=== PATIENT | female | born 1995 | race Caucasian/White ===

== ENCOUNTER 2022-05-10 15:00 | Emergency (ER) | payer MEDICAID, OTHER ==
[2022-05-10] MEDS ORDERED: Sodium Chloride 0.9% 10 ML Syringe FLUSH PRN (15:10)
[2022-05-10] MEDS ORDERED: Sodium Chloride 0.9% 2.5 ML Syringe FLUSH PRN (15:10)
[2022-05-10] MEDS ORDERED: Sodium Chloride 0.9% 1,000 ML IV ONE (15:10)
[2022-05-10] MEDS ORDERED: methylPREDNISolone Sodium Succinate 125 MG/2 ML SDV IVPUSH ONE (15:13)
[2022-05-10] MEDS ORDERED: Famotidine 20 MG/2 ML SDV IVPUSH ONE (15:13)
[2022-05-10 16:07] LABS: CORONAVIRUS COVID-19 NAA NEGATIVE (NEGATIVE); INFLUENZA A NAA NEGATIVE (NEGATIVE); INFLUENZA B NAA NEGATIVE (NEGATIVE); RESPIRATORY SYNCYTIAL VIR NAA NEGATIVE (NEGATIVE)
[2022-05-10 16:28] LABS: CARBON DIOXIDE,CO2 27.9 mmol/L (21.0-32.0); POTASSIUM,K 3.7 mmol/L (3.5-5.1)
== END 2022-05-10 19:11 | disposition home or self-care (01) ==
LOC: MW.ED 15:00
DX: T78.40XA Allergy, unspecified, initial encounter (principal); B34.9 Viral infection, unspecified; Z88.5 Allergy status to narcotic agent; Z88.8 Allergy status to other drugs, medicaments and biological substances; Z20.822 Contact with and (suspected) exposure to COVID-19
CPT/HCPCS: 0241U; 36415; 71045; 80053; 83605; 85025; 87040; 96361; 96374; 96375; 99284; J2930; J3490; J7030

== ENCOUNTER 2022-05-11 18:57 | Inpatient (IN) | payer MEDICAID ==
[2022-05-11] MEDS ORDERED: Lactated Ringers 1,000 ML IV ONE (19:07)
[2022-05-11] MEDS ORDERED: methylPREDNISolone Sodium Succinate 125 MG/2 ML SDV IVPUSH STA (19:08)
[2022-05-11] MEDS ORDERED: Ibuprofen Susp 100 MG/5 ML 10 ML UD Cup JTUBE STA (19:08)
[2022-05-11 19:58] LABS: BLOOD UREA NITROGEN,BUN 15 mg/dL (7.0-18.0); CARBON DIOXIDE,CO2 28.7 mmol/L (21.0-32.0); CHLORIDE,CL 103 mmol/L (98-107); GLUCOSE RANDOM 167 mg/dL (74-106); POTASSIUM,K 3.5 mmol/L (3.5-5.1); SODIUM,NA 139 mmol/L (136-145)
[2022-05-11 20:00] LABS: ESTIMATED GFR 139 mL/min (>60)
[2022-05-11 21:13] LABS: CORONAVIRUS COVID-19 NAA NEGATIVE (NEGATIVE); INFLUENZA A NAA POSITIVE (NEGATIVE); INFLUENZA B NAA NEGATIVE (NEGATIVE); RESPIRATORY SYNCYTIAL VIR NAA NEGATIVE (NEGATIVE)
[2022-05-11] MEDS ORDERED: Oseltamivir 6 MG/ML Susp 60 ML Bot JTUBE STA (21:42)
[2022-05-11] MEDS ORDERED: Ondansetron 4 MG/2 ML SDV IVPUSH PRN (21:59)
[2022-05-11] MEDS ORDERED: cefTRIAXone 1 GM in Sodium Chloride 0.9% 50 ML IV SCH (22:15)
[2022-05-11] MEDS: Pantoprazole 40 MG in Sodium Chloride 0.9% 10 ML IVPUSH SCH (22:17)
[2022-05-11] MEDS: Lactated Ringers 1,000 ML IV SCH (22:26)
[2022-05-11] MEDS ORDERED: LORazepam 2 MG/ML SDV IVPUSH PRN (23:20)
[2022-05-12] MEDS ORDERED: VIMPAT 10 MG/ML GTUBE SCH (00:45)
[2022-05-12] MEDS ORDERED: Baclofen 10 MG Tab GTUBE SCH (01:00)
[2022-05-12] MEDS: Enoxaparin 30 MG/0.3 ML Syringe SUBCUT SCH ×2 (01:38→21:23)
[2022-05-12] MEDS ORDERED: Patient's Own Medication 1 Each GTUBE SCH ×2 (03:30→09:00)
[2022-05-12] MEDS: VIMPAT 10MG/ML GTUBE SCH ×2 (04:18→17:16)
[2022-05-12] MEDS: Lactated Ringers 1,000 ML IV SCH ×2 (07:21→13:05)
[2022-05-12] MEDS: Oseltamivir 75 MG Cap JTUBE SCH ×2 (08:12→20:28)
[2022-05-12] MEDS: OXCARBAZEPINE 300 MG/5 ML PO SCH (08:13)
[2022-05-12] MEDS: BACLOFEN 10 MG GTUBE SCH ×2 (08:14→20:40)
[2022-05-12 08:38] LABS: BLOOD UREA NITROGEN,BUN 6 mg/dL (7.0-18.0); CARBON DIOXIDE,CO2 28.4 mmol/L (21.0-32.0); CHLORIDE,CL 107 mmol/L (98-107); GLUCOSE RANDOM 120 mg/dL (74-106); POTASSIUM,K 3.7 mmol/L (3.5-5.1); SODIUM,NA 142 mmol/L (136-145)
[2022-05-12] MEDS ORDERED: OXcarbazepine 300 MG Tab GTUBE SCH (09:00)
[2022-05-12] MEDS ORDERED: diphenhydrAMINE 50 MG/ML SDV IVPUSH PRN (11:21)
[2022-05-12] MEDS ORDERED: methylPREDNISolone Sodium Succinate 125 MG/2 ML SDV IVPUSH ONE (11:22)
[2022-05-12] MEDS ORDERED: Lactated Ringers 1,000 ML IV SCH (11:30)
[2022-05-12] MEDS: Acetaminophen 325 MG Tab PO PRN (12:03)
[2022-05-12] MEDS: ClonazePAM 1 MG Tab GTUBE SCH (12:06)
[2022-05-12] MEDS: Albuterol/Ipratropium 3.0-0.5 MG/3 ML Neb Soln NEB PRN ×2 (13:14→17:17)
[2022-05-12] MEDS ORDERED: Polyethylene Glycol 3350 Powder 17 GM Packet PEGTUBE PRN ×2 (13:23→13:30)
[2022-05-12] MEDS ORDERED: Magnesium Sulfate/Water 2 GM in Premix Bag 1 BAG IV ONE (13:26)
[2022-05-12] MEDS ORDERED: Lactated Ringers 1,000 ML IV ONE (13:36)
[2022-05-12] MEDS: Piperacillin/Tazobactam 3.375 GM in Sodium Chloride 0.9% 50 ML IV SCH ×2 (14:14→20:59)
[2022-05-12] MEDS: methylPREDNISolone Sodium Succinate 40 MG/1 ML SDV IVPUSH SCH ×2 (14:18→22:01)
[2022-05-12] MEDS: diphenhydrAMINE 50 MG/ML SDV IVPUSH SCH ×3 (14:19→22:01)
[2022-05-12] MEDS: Azithromycin 500 MG in Sodium Chloride 0.9% 250 ML IV SCH (15:10)
[2022-05-12] MEDS: Famotidine 20 MG Tab JTUBE SCH (20:28)
[2022-05-12] MEDS: Pantoprazole 40 MG in Sodium Chloride 0.9% 10 ML IVPUSH SCH (22:02)
[2022-05-12] MEDS ORDERED: diphenhydrAMINE 50 MG/ML SDV IVPUSH SCH (23:45)
[2022-05-13] MEDS: Lactated Ringers 1,000 ML IV SCH ×3 (00:29→23:05)
[2022-05-13] MEDS: Albuterol/Ipratropium 3.0-0.5 MG/3 ML Neb Soln NEB PRN ×2 (01:27→08:55)
[2022-05-13] MEDS: VIMPAT 10MG/ML GTUBE SCH ×2 (03:31→16:27)
[2022-05-13] MEDS: Piperacillin/Tazobactam 3.375 GM in Sodium Chloride 0.9% 50 ML IV SCH ×3 (03:46→20:53)
[2022-05-13] MEDS ORDERED: diphenhydrAMINE 50 MG/ML SDV IVPUSH SCH (04:00)
[2022-05-13] MEDS: methylPREDNISolone Sodium Succinate 40 MG/1 ML SDV IVPUSH SCH ×3 (04:57→21:23)
[2022-05-13 06:06] LABS: CARBON DIOXIDE,CO2 29.9 mmol/L (21.0-32.0); POTASSIUM,K 3.3 mmol/L (3.5-5.1)
[2022-05-13] MEDS: Acetaminophen 325 MG Tab PO PRN (06:21)
[2022-05-13] MEDS: Oseltamivir 75 MG Cap JTUBE SCH ×2 (08:55→20:37)
[2022-05-13] MEDS: Famotidine 20 MG Tab JTUBE SCH (08:55)
[2022-05-13] MEDS: BACLOFEN 10 MG GTUBE SCH ×2 (08:57→20:37)
[2022-05-13] MEDS: OXCARBAZEPINE 300 MG/5 ML PO SCH (08:58)
[2022-05-13] MEDS: ClonazePAM 1 MG Tab GTUBE SCH (09:26)
[2022-05-13] MEDS ORDERED: Lactated Ringers 1,000 ML IV ONE (10:28)
[2022-05-13] MEDS ORDERED: Potassium Chloride 10% 20 MEQ/15 ML Soln 30 ML UD Cup JTUBE ONE (10:30)
[2022-05-13] MEDS ORDERED: Potassium Chloride 10% 20 MEQ/15 ML Soln 30 ML UD Cup PO ONE (10:30)
[2022-05-13] MEDS ORDERED: Acetaminophen 325 MG/10.15 ML ML JTUBE PRN (10:40)
[2022-05-13] MEDS: Azithromycin 500 MG in Sodium Chloride 0.9% 250 ML IV SCH (13:07)
[2022-05-13 17:31] LABS: CARBON DIOXIDE,CO2 28.4 mmol/L (21.0-32.0); POTASSIUM,K 4.1 mmol/L (3.5-5.1)
[2022-05-13] MEDS: diphenhydrAMINE 50 MG/ML SDV IVPUSH PRN (18:59)
[2022-05-13] MEDS: Enoxaparin 30 MG/0.3 ML Syringe SUBCUT SCH (21:23)
[2022-05-13] MEDS: Pantoprazole 40 MG in Sodium Chloride 0.9% 10 ML IVPUSH SCH (22:00)
[2022-05-14] MEDS: Piperacillin/Tazobactam 3.375 GM in Sodium Chloride 0.9% 50 ML IV SCH ×4 (04:15→23:16)
[2022-05-14] MEDS: VIMPAT 10MG/ML GTUBE SCH ×2 (04:21→15:43)
[2022-05-14] MEDS: methylPREDNISolone Sodium Succinate 40 MG/1 ML SDV IVPUSH SCH ×2 (04:51→15:42)
[2022-05-14 05:57] LABS: CARBON DIOXIDE,CO2 28.7 mmol/L (21.0-32.0); POTASSIUM,K 3.7 mmol/L (3.5-5.1)
[2022-05-14] MEDS ORDERED: Acetaminophen 325 MG/10.15 ML ML JTUBE PRN (06:30)
[2022-05-14] MEDS: Famotidine 20 MG Tab JTUBE SCH (08:28)
[2022-05-14] MEDS: Oseltamivir 75 MG Cap JTUBE SCH ×2 (08:28→20:06)
[2022-05-14] MEDS: OXCARBAZEPINE 300 MG/5 ML PO SCH (08:29)
[2022-05-14] MEDS: BACLOFEN 10 MG GTUBE SCH ×2 (08:29→20:07)
[2022-05-14] MEDS: Lactated Ringers 1,000 ML IV SCH ×3 (09:06→22:16)
[2022-05-14] MEDS: Azithromycin 500 MG in Sodium Chloride 0.9% 250 ML IV SCH (14:11)
[2022-05-14] MEDS: diphenhydrAMINE 50 MG/ML SDV IVPUSH PRN (16:39)
[2022-05-14] MEDS: ClonazePAM 0.5 MG Tab PO SCH (21:07)
[2022-05-14] MEDS: Enoxaparin 30 MG/0.3 ML Syringe SUBCUT SCH (21:38)
[2022-05-14] MEDS: Pantoprazole 40 MG in Sodium Chloride 0.9% 10 ML IVPUSH SCH (21:39)
[2022-05-15] MEDS: VIMPAT 10MG/ML GTUBE SCH ×2 (03:17→16:20)
[2022-05-15] MEDS: methylPREDNISolone Sodium Succinate 40 MG/1 ML SDV IVPUSH SCH ×2 (03:28→16:19)
[2022-05-15] MEDS: Piperacillin/Tazobactam 3.375 GM in Sodium Chloride 0.9% 50 ML IV SCH (04:50)
[2022-05-15 06:31] LABS: CARBON DIOXIDE,CO2 30.5 mmol/L (21.0-32.0); POTASSIUM,K 3.5 mmol/L (3.5-5.1)
[2022-05-15] MEDS: OXCARBAZEPINE 300 MG/5 ML PO SCH (09:05)
[2022-05-15] MEDS: Famotidine 20 MG Tab JTUBE SCH (09:05)
[2022-05-15] MEDS: Oseltamivir 75 MG Cap JTUBE SCH ×2 (09:05→20:07)
[2022-05-15] MEDS: BACLOFEN 10 MG GTUBE SCH ×2 (09:06→20:07)
[2022-05-15] MEDS ORDERED: Glucagon,Human Recombinant 1 MG Vial IM PRN (09:07)
[2022-05-15] MEDS ORDERED: 50% Dextrose in Water 50 ML Syringe IVPUSH PRN (09:07)
[2022-05-15] MEDS ORDERED: Insulin Aspart 100 Units/ML 3 ML Pen SUBCUT SCH (09:15)
[2022-05-15] MEDS ORDERED: Dextrose 5% in Water 1,000 ML IV SCH (09:45)
[2022-05-15] MEDS: Ampicillin/Sulbactam Na 1.5 GM in Sodium Chloride 0.9% 50 ML IV SCH ×3 (10:12→21:16)
[2022-05-15] MEDS: Insulin Aspart 100 Units/ML 3 ML Pen SUBCUT SCH ×3 (12:03→23:41)
[2022-05-15] MEDS: Azithromycin 500 MG in Sodium Chloride 0.9% 250 ML IV SCH (12:34)
[2022-05-15 16:00] LABS: CARBON DIOXIDE,CO2 30.6 mmol/L (21.0-32.0); POTASSIUM,K 3.3 mmol/L (3.5-5.1)
[2022-05-15] MEDS: Dextrose 5% in Water 1,000 ML IV SCH (16:15)
[2022-05-15] MEDS: Lactated Ringers 1,000 ML IV SCH (19:32)
[2022-05-15] MEDS: Enoxaparin 30 MG/0.3 ML Syringe SUBCUT SCH (21:15)
[2022-05-15] MEDS: ClonazePAM 0.5 MG Tab PO SCH (21:15)
[2022-05-16 00:14] LABS: CARBON DIOXIDE,CO2 32.1 mmol/L (21.0-32.0); POTASSIUM,K 3.9 mmol/L (3.5-5.1)
[2022-05-16] MEDS: Dextrose 5% in Water 1,000 ML IV SCH ×4 (01:31→23:55)
[2022-05-16] MEDS: Ampicillin/Sulbactam Na 1.5 GM in Sodium Chloride 0.9% 50 ML IV SCH ×4 (03:05→21:03)
[2022-05-16] MEDS: Albuterol/Ipratropium 3.0-0.5 MG/3 ML Neb Soln NEB PRN (04:26)
[2022-05-16] MEDS: VIMPAT 10MG/ML GTUBE SCH ×2 (04:26→16:00)
[2022-05-16] MEDS: methylPREDNISolone Sodium Succinate 40 MG/1 ML SDV IVPUSH SCH (04:26)
[2022-05-16] MEDS: Insulin Aspart 100 Units/ML 3 ML Pen SUBCUT SCH ×4 (05:17→23:51)
[2022-05-16 05:55] LABS: CARBON DIOXIDE,CO2 33.9 mmol/L (21.0-32.0); POTASSIUM,K 3.2 mmol/L (3.5-5.1)
[2022-05-16] MEDS ORDERED: Phosphorus #1 250 MG Tab GTUBE ONE (07:30)
[2022-05-16] MEDS ORDERED: Potassium Chloride 10% 20 MEQ/15 ML Soln 30 ML UD Cup GTUBE ONE (07:30)
[2022-05-16] MEDS: Famotidine 20 MG Tab JTUBE SCH (08:27)
[2022-05-16] MEDS: Oseltamivir 75 MG Cap JTUBE SCH ×2 (08:27→20:47)
[2022-05-16] MEDS: OXCARBAZEPINE 300 MG/5 ML PO SCH (08:38)
[2022-05-16] MEDS: BACLOFEN 10 MG GTUBE SCH ×2 (08:43→20:43)
[2022-05-16] MEDS: diphenhydrAMINE 50 MG/ML SDV IVPUSH PRN (13:32)
[2022-05-16] MEDS: Azithromycin 500 MG in Sodium Chloride 0.9% 250 ML IV SCH (13:36)
[2022-05-16 15:49] LABS: POTASSIUM,K 3.9 mmol/L (3.5-5.1)
[2022-05-16] MEDS: ClonazePAM 0.5 MG Tab PO SCH (20:44)
[2022-05-16] MEDS: Enoxaparin 30 MG/0.3 ML Syringe SUBCUT SCH (21:53)
[2022-05-17] MEDS: Ampicillin/Sulbactam Na 1.5 GM in Sodium Chloride 0.9% 50 ML IV SCH ×5 (03:28→22:45)
[2022-05-17] MEDS: VIMPAT 10MG/ML GTUBE SCH ×2 (04:12→17:39)
[2022-05-17] MEDS: Dextrose 5% in Water 1,000 ML IV SCH ×3 (05:55→18:14)
[2022-05-17] MEDS: Insulin Aspart 100 Units/ML 3 ML Pen SUBCUT SCH ×3 (05:57→18:12)
[2022-05-17 06:13] LABS: CARBON DIOXIDE,CO2 33.6 mmol/L (21.0-32.0); POTASSIUM,K 3.3 mmol/L (3.5-5.1)
[2022-05-17] MEDS: Famotidine 20 MG Tab JTUBE SCH (08:28)
[2022-05-17] MEDS: BACLOFEN 10 MG GTUBE SCH ×2 (08:37→20:35)
[2022-05-17] MEDS ORDERED: methylPREDNISolone Sodium Succinate 40 MG/1 ML SDV IVPUSH SCH (09:00)
[2022-05-17] MEDS: OXCARBAZEPINE 300 MG/5 ML PO SCH (09:21)
[2022-05-17] MEDS ORDERED: Phosphorus #1 250 MG Tab GTUBE ONE (10:29)
[2022-05-17] MEDS ORDERED: Potassium Chloride 20 MEQ in Premix Bag 1 BAG IV SCH (10:30)
[2022-05-17] MEDS ORDERED: WATER IV ONE ×2 (11:00)
[2022-05-17] MEDS ORDERED: DEXTROSE IV ONE ×2 (11:00)
[2022-05-17] MEDS ORDERED: POTASSIUM PHOSPHATES IV ONE ×2 (11:00)
[2022-05-17 14:53] LABS: CARBON DIOXIDE,CO2 33.9 mmol/L (21.0-32.0); POTASSIUM,K 4.2 mmol/L (3.5-5.1)
[2022-05-17] MEDS: Azithromycin 500 MG in Sodium Chloride 0.9% 250 ML IV SCH (15:55)
[2022-05-17] MEDS: ClonazePAM 0.5 MG Tab PO SCH (20:35)
[2022-05-17] MEDS: Enoxaparin 30 MG/0.3 ML Syringe SUBCUT SCH (22:45)
[2022-05-18] MEDS: Sodium Chloride 0.9% Inhalation Soln 3 ML Neb INH SCH ×7 (00:20→22:50)
[2022-05-18] MEDS: Insulin Aspart 100 Units/ML 3 ML Pen SUBCUT SCH ×4 (03:36→18:11)
[2022-05-18] MEDS: Dextrose 5% in Water 1,000 ML IV SCH ×2 (03:52→16:45)
[2022-05-18] MEDS: VIMPAT 10MG/ML GTUBE SCH ×2 (03:57→17:30)
[2022-05-18] MEDS: Ampicillin/Sulbactam Na 1.5 GM in Sodium Chloride 0.9% 50 ML IV SCH ×3 (04:40→18:10)
[2022-05-18 07:07] LABS: CARBON DIOXIDE,CO2 33.5 mmol/L (21.0-32.0); POTASSIUM,K 3.4 mmol/L (3.5-5.1)
[2022-05-18] MEDS: Famotidine 20 MG Tab JTUBE SCH (09:51)
[2022-05-18] MEDS: BACLOFEN 10 MG GTUBE SCH ×2 (09:52→20:46)
[2022-05-18] MEDS: OXCARBAZEPINE 300 MG/5 ML PO SCH (09:53)
[2022-05-18] MEDS: Azithromycin 500 MG in Sodium Chloride 0.9% 250 ML IV SCH (14:44)
[2022-05-18] MEDS: ClonazePAM 0.5 MG Tab PO SCH (20:45)
[2022-05-18] MEDS: Enoxaparin 30 MG/0.3 ML Syringe SUBCUT SCH (22:46)
[2022-05-19] MEDS: Insulin Aspart 100 Units/ML 3 ML Pen SUBCUT SCH ×4 (00:06→17:31)
[2022-05-19] MEDS: Dextrose 5% in Water 1,000 ML IV SCH ×2 (01:54→10:55)
[2022-05-19] MEDS: Sodium Chloride 0.9% Inhalation Soln 3 ML Neb INH SCH ×6 (02:57→22:32)
[2022-05-19] MEDS: VIMPAT 10MG/ML GTUBE SCH ×2 (04:14→15:49)
[2022-05-19] MEDS: Ampicillin/Sulbactam Na 1.5 GM in Sodium Chloride 0.9% 50 ML IV SCH ×5 (05:30→17:11)
[2022-05-19 05:54] LABS: CARBON DIOXIDE,CO2 34.7 mmol/L (21.0-32.0); POTASSIUM,K 3.4 mmol/L (3.5-5.1)
[2022-05-19] MEDS: Famotidine 20 MG Tab JTUBE SCH (08:56)
[2022-05-19] MEDS: BACLOFEN 10 MG GTUBE SCH ×2 (08:56→20:23)
[2022-05-19] MEDS: OXCARBAZEPINE 300 MG/5 ML PO SCH (08:56)
[2022-05-19] MEDS ORDERED: Potassium Chloride 20 MEQ in Premix Bag 1 BAG IV ONE (10:15)
[2022-05-19] MEDS: Azithromycin 500 MG in Sodium Chloride 0.9% 250 ML IV SCH (13:36)
[2022-05-19] MEDS: ClonazePAM 0.5 MG Tab PO SCH (20:24)
[2022-05-19] MEDS: diphenhydrAMINE 50 MG/ML SDV IVPUSH PRN (21:05)
[2022-05-19] MEDS: Enoxaparin 30 MG/0.3 ML Syringe SUBCUT SCH (22:33)
[2022-05-20] MEDS: Dextrose 5% in Water 1,000 ML IV SCH ×3 (00:14→16:55)
[2022-05-20] MEDS: Ampicillin/Sulbactam Na 1.5 GM in Sodium Chloride 0.9% 50 ML IV SCH ×5 (00:15→23:56)
[2022-05-20] MEDS: Insulin Aspart 100 Units/ML 3 ML Pen SUBCUT SCH ×4 (00:47→17:28)
[2022-05-20] MEDS: Sodium Chloride 0.9% Inhalation Soln 3 ML Neb INH SCH ×6 (02:47→21:45)
[2022-05-20] MEDS: VIMPAT 10MG/ML GTUBE SCH ×2 (04:51→16:02)
[2022-05-20 06:02] LABS: POTASSIUM,K 3.8 mmol/L (3.5-5.1)
[2022-05-20] MEDS: Famotidine 20 MG Tab JTUBE SCH (08:16)
[2022-05-20] MEDS: OXCARBAZEPINE 300 MG/5 ML PO SCH (08:16)
[2022-05-20] MEDS: BACLOFEN 10 MG GTUBE SCH ×2 (08:16→21:45)
[2022-05-20] MEDS: ClonazePAM 0.5 MG Tab PO SCH (21:45)
[2022-05-20] MEDS: Enoxaparin 30 MG/0.3 ML Syringe SUBCUT SCH (21:45)
[2022-05-21] MEDS: Insulin Aspart 100 Units/ML 3 ML Pen SUBCUT SCH ×3 (00:39→11:49)
[2022-05-21] MEDS: Sodium Chloride 0.9% Inhalation Soln 3 ML Neb INH SCH ×4 (01:59→13:58)
[2022-05-21] MEDS: VIMPAT 10MG/ML GTUBE SCH (05:37)
[2022-05-21 05:46] LABS: CARBON DIOXIDE,CO2 31.1 mmol/L (21.0-32.0)
[2022-05-21] MEDS: Ampicillin/Sulbactam Na 1.5 GM in Sodium Chloride 0.9% 50 ML IV SCH ×2 (06:44→11:31)
[2022-05-21] MEDS: OXCARBAZEPINE 300 MG/5 ML PO SCH (09:11)
[2022-05-21] MEDS: Famotidine 20 MG Tab JTUBE SCH (09:11)
[2022-05-21] MEDS: BACLOFEN 10 MG GTUBE SCH (09:11)
[2022-05-21] MEDS: Dextrose 5% in Water 1,000 ML IV SCH ×2 (09:33→13:38)
== END 2022-05-21 15:50 | disposition home or self-care (01) | DRG 871 ==
LOC: MW.ED 18:57 → MW.MS 22:35 → MW.ICU 05-12 12:39 → MW.MS 05-17 16:14 → MW.ICU 05-18 17:43
PROVIDERS: ADMIT Student in an Organized Health Care Education/Training Program; ATTEND Student in an Organized Health Care Education/Training Program
DX: A41.9 Sepsis, unspecified organism (principal); J69.0 Pneumonitis due to inhalation of food and vomit; J96.01 Acute respiratory failure with hypoxia; F84.2 Rett's syndrome; N17.9 Acute kidney failure, unspecified; E87.0 Hyperosmolality and hypernatremia; J10.1 Influenza due to other identified influenza virus with other respiratory manifestations; Z20.822 Contact with and (suspected) exposure to COVID-19; R56.9 Unspecified convulsions; L50.9 Urticaria, unspecified; R59.0 Localized enlarged lymph nodes; E87.6 Hypokalemia; E83.39 Other disorders of phosphorus metabolism; Z88.5 Allergy status to narcotic agent; Z88.8 Allergy status to other drugs, medicaments and biological substances
CPT/HCPCS: 0241U; 36415; 36600; 70490; 70490-26; 71045; 71045-26; 74018; 74018-26; 80048; 80053; 80156; 80177; 80202; 80235; 81001; 82803; 82947; 83605; 83735; 84100; 85025; 85610; 87040; 87077; 87086; 87147; 87186; 87651-QW; 94640; 94667; 94668; 96361; 96365; 96375; 99221; 99232; 99233; 99239; 99284; 99285-25; A9270-GY; C9113; J0295; J0456; J0696; J1200; J1650; J1815-GY; J1953; J2060; J2543; J2920; J2930; J3370; J3475; J3480; J3490; J7050; J7060; J7120; J7620-GY